=== PATIENT | female | born 1980 | race Caucasian/White ===

== ENCOUNTER 2016-11-29 00:37 | Emergency (ER) | payer OTHER ==
[2016-11-29 01:13] LABS: BASO # 0.1 10_X3_uL (0.0-0.1); BASO % 0.4 % (0.1-1.2); EOS # 0.1 10_X3_uL (0.0-0.4); EOS % 0.4 % (0.7-5.8); GRAN # 9.9 10_X3_uL (1.6-6.1); GRAN % 71.5 % (34.0-71.1); HEMATOCRIT 43.9 % (34-45); HEMOGLOBIN 15.1 g/dL (11.2-15.7); LYMPH # 2.9 10_X3_uL (1.2-3.7); LYMPH % 21.2 % (19.3-51.7); MEAN CORPUSCULAR HEMOGLOBIN 30.5 pg (27.0-33.0); MEAN CORPUSCULAR HGB CONC 34.4 g/dL (32.0-36.0); MEAN CORPUSCULAR VOLUME 88.7 fL (79-95); MEAN PLATELET VOLUME 11.7 fl (7.5-11.5); MONO # 0.9 10_X3_uL (0.2-0.9); MONO % 6.5 % (4.7-12.5); PLATELET COUNT 297 x10_3/uL (182-369); RED BLOOD COUNT 4.95 x10_6/uL (3.9-5.2); RED CELL DISTRIBUTION WIDTH 15.9 % (11.7-14.4); WHITE BLOOD COUNT 13.9 x10_3/uL (4.0-10.0)
[2016-11-29 01:27] LABS: ALBUMIN 3.9 gm/dL (3.4-5.0); ALKALINE PHOSPHATASE 135 U/L (50-136); AMYLASE 128 U/L (15.62-74.58); BLOOD UREA NITROGEN 25 mg/dL (7-18); CALCIUM 9.3 mg/dL (8.7-10.7); CARBON DIOXIDE 12 mmol/L (21-32); CREATININE 1.6 mg/dL (0.6-1.3); POTASSIUM 4.8 mmol/L (3.5-5.1); TOTAL PROTEIN 7.4 gm/dL (6.4-8.2)
[2016-11-29 01:31] LABS: ETHYL ALCOHOL < 10 mg/dl
[2016-11-29 01:38] LABS: ALT/SGPT 13 U/L (3.5-33.9); AST/SGOT 9 U/L (7.04-26.96)
[2016-11-29 01:40] LABS: ACETAMINOPHEN < 15.0 ug/ml (10.0-30.0); GLUCOSE,RANDOM 1029 mg/dL (70-99); LIPASE 513 U/L (6.75-60.75); SODIUM 120 mmol/L (136-145)
[2016-11-29 01:44] LABS: CKMB < 1.0 ng/ml (0.0-5.0); TROP-I < 0.30 NG/ML (0.00-0.30)
[2016-11-29 02:21] LABS: ARTERIAL BLD GAS O2 SATURATION 95.5 % (94-98); ARTERIAL BLOOD GAS BASE EXCESS -11.2 mmol/L (-2.0-3.0); ARTERIAL BLOOD GAS HCO3 16.5 mmol/L (22-26)
[2016-11-29 02:33] LABS: CALCIUM 9.2 mg/dL (8.7-10.7); CREATININE 1.3 mg/dL (0.6-1.3); POTASSIUM 3.8 mmol/L (3.5-5.1)
[2016-11-29 06:50] LABS: BLOOD UREA NITROGEN 19 mg/dL (7-18); CALCIUM 8.8 mg/dL (8.7-10.7); CARBON DIOXIDE 15 mmol/L (21-32); CREATININE 0.9 mg/dL (0.6-1.3); GLUCOSE,RANDOM 300 mg/dL (70-99); POTASSIUM 4.7 mmol/L (3.5-5.1); SODIUM 137 mmol/L (136-145)
[2016-11-29 07:10] LABS: AMYLASE 89 U/L (15.62-74.58); LIPASE 162 U/L (6.75-60.75)
[2016-11-29 07:30] LABS: ARTERIAL BLD GAS O2 SATURATION 96.7 % (94-98); ARTERIAL BLOOD GAS BASE EXCESS -9.9 mmol/L (-2.0-3.0); ARTERIAL BLOOD GAS HCO3 17.1 mmol/L (22-26); ARTERIAL BLOOD GAS PCO2 42.6 mmHg (32-45); ARTERIAL BLOOD GAS pH 7.23 (7.35-7.45)
== END 2016-11-29 09:06 | disposition short-term general hospital (02) ==
LOC: ER 00:37
PROVIDERS: Emergency Medicine
DX: T42.4X2A Poisoning by benzodiazepines, intentional self-harm, initial encounter (principal); E13.10 Other specified diabetes mellitus with ketoacidosis without coma; E11.65 Type 2 diabetes mellitus with hyperglycemia; I25.2 Old myocardial infarction; Z95.828 Presence of other vascular implants and grafts; Z79.899 Other long term (current) drug therapy; Z79.82 Long term (current) use of aspirin
CPT/HCPCS: 31500; 36415; 36600; 51702; 71010; 80048; 80053; 80307; 82009; 82150; 82553; 82803; 82962; 83690; 84703; 85025; 92950; 93005; 94002; 96361; 96365; 96366; 96367; 96375; 96376; 99070; 99285-25; G0480; J2250; J7040